=== PATIENT | male | born 2005 | race Caucasian/White ===

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

== ENCOUNTER → 2024-04-12 10:35 | Outpatient (REF) | payer BC, SELFPAY ==
[2024-04-12 11:03] LABS: % Basophils 0.7 % (0-2); % Eosinophils 2.6 % (0-6); % Immature Granulocytes 0.2 % (0-0.5); % Lymphocytes 44.7 % (20.5-51.1); % Monocytes 6.8 % (1.7-9.3); Absolute Basophils 0.1 10^3/uL (0-0.2); Absolute Eosinophils 0.2 10^3/uL (0-0.7); Absolute Lymphocytes 3.8 10^3/uL (1.2-3.4); Absolute Monocytes 0.6 10^3/uL (0.1-0.6); Absolute Neutrophils 3.8 10^3/uL (1.4-6.5); Hematocrit 41.7 % (39.0-52.0); Hemoglobin 14.7 g/dL (13.0-18.0); Mean Corp Hgb Conc. 35.3 g/dL (33.0-37.0); Mean Corpuscular Hgb 29.5 pg (27.0-31.0); Mean Corpuscular Volume 83.6 fL (80.0-94.0); Mean Platelet Volume 9.5 fL (7.4-10.4); Nucleated Red Blood Cells % 0 % (-); Platelet Count 324 10^3/uL (130-400); Red Blood Cell Count 4.99 10^6/uL (4.70-6.10); Red Cell Dist. Width 11.8 % (11.5-14.5); White Blood Cell Count 8.5 10^3/uL (4.8-10.8)
[2024-04-12 11:39] LABS: ALT (SGPT) 25 U/L (0-50); AST (SGOT) 21 U/L (17-59); Albumin 4.7 g/dl (3.5-5.0); Alkaline Phosphatase 80 U/L (38-126); Blood Urea Nitrogen 15 mg/dl (9-20); Calcium 9.7 mg/dl (8.4-10.2); Carbon Dioxide 26 mmol/L (22-30); Chloride 103 mmol/L (98-107); Glucose 95 mg/dl (70-99); HDL Cholesterol 44 mg/dl; LDL Cholesterol, Calculated 111 mg/dl; Potassium 4.5 mmol/L (3.5-5.1); Sodium 139 mmol/L (135-145); Total Bilirubin 0.6 mg/dl (0.2-1.3); Total Cholesterol 207 mg/dl (50-199); Total Protein 7.2 g/dl (6.3-8.2); Triglyceride 264 mg/dl (10-149); Very Low Density Lipoprotein 52 mg/dl (0-30); eGFR > 60.00
[2024-04-12 12:14] LABS: TSH Reflex To Free T4 2.84 uIU/ml (0.47-4.68)
== END ==
LOC: REG 10:35
PROVIDERS: ATTENDING PHYSICIAN Registered Nurse
DX: Z76.89 Persons encountering health services in other specified circumstances (principal); E66.9 Obesity, unspecified; E78.5 Hyperlipidemia, unspecified
CPT/HCPCS: 36415; 80053; 80061; 84443; 85025

== ENCOUNTER → 2025-05-06 13:20 | Outpatient (REF) | payer BC, SELFPAY ==
[2025-05-06 14:22] LABS: Hematocrit 43.1 % (39.0-52.0); Hemoglobin 14.4 g/dL (13.0-18.0); Mean Corp Hgb Conc. 33.4 g/dL (33.0-37.0); Mean Corpuscular Volume 86.4 fL (80.0-94.0); Nucleated Red Blood Cells % 0 % (-); Platelet Count 343 10^3/uL (130-400); Red Cell Dist. Width 11.8 % (11.5-14.5)
[2025-05-06 14:55] LABS: ALT (SGPT) 21 U/L (0-50); AST (SGOT) 21 U/L (17-59); Albumin 4.8 g/dl (3.5-5.0); Alkaline Phosphatase 91 U/L (38-126); Blood Urea Nitrogen 14 mg/dl (9-20); Calcium 9.8 mg/dl (8.4-10.2); Carbon Dioxide 27 mmol/L (22-30); Chloride 102 mmol/L (98-107); Glucose 85 mg/dl (70-99); HDL Cholesterol 42 mg/dl; LDL Cholesterol, Calculated 121 mg/dl; Potassium 4.5 mmol/L (3.5-5.1); Sodium 136 mmol/L (135-145); Total Protein 7.4 g/dl (6.3-8.2); Very Low Density Lipoprotein 31 mg/dl (0-30); eGFR > 60.00
== END ==
LOC: REG 13:20
PROVIDERS: ATTENDING PHYSICIAN Registered Nurse
DX: Z00.00 Encounter for general adult medical examination without abnormal findings (principal); E66.811 Obesity, class 1; E78.5 Hyperlipidemia, unspecified
CPT/HCPCS: 36415; 80053; 80061; 84443; 85025